=== PATIENT | female | born 1950 | race Caucasian/White ===

== ENCOUNTER 2018-08-28 23:05 | Emergency (ER) | payer MEDICARE ==
[2018-08-28] MEDS ORDERED: METOCLOPRAMIDE 10 MG/2 ML VIAL IVP STA (23:11)
[2018-08-28] MEDS ORDERED: fentaNYL 100 MCG/2 ML VIAL IVP STA (23:17)
[2018-08-28] MEDS ORDERED: FAMOTIDINE 20 MG in SODIUM CHLORIDE 0.9% 50 ML IV ONE (23:17)
--- NOTE | 2018-08-28 23:31 | ED Physician Documentation ---
PD HPI ABD PAIN - Stated complaint Stated Complaint: ABD CRAMPS - Chief complaint Chief Complaint: Abd Pain - Additional information Additional information: 67-year-old female presents the emergency department for evaluation of epigastric pain which started around 7 PM. The pain was not triggered by food. The pain is been continuous and is described as a moderate sharp pain. The pain is associated with nausea. No reports of vomiting or diarrhea or lower abdominal pain. No history of similar pain. The patient does use alcohol occasionally and uses NSAIDs frequently. No other associated symptoms. No relieving factors. Review of Systems Constitutional: denies: Fever Eyes: denies: Loss of vision Ears: denies: Ear pain Nose: denies: Congestion Throat: denies: Sore throat Cardiac: denies: Chest pain / pressure Respiratory: denies: Dyspnea GI: reports: Abdominal Pain, Nausea : denies: Dysuria Skin: denies: Rash Musculoskeletal: denies: Neck pain Neurologic: denies: Generalized weakness Immunocompromised: denies: Chemotherapy PD PAST MEDICAL HISTORY - Present Medications Home Medications: Ambulatory Orders Medication Instructions Recorded Confirmed Famotidine [Pepcid] 20 mg PO BID #60 tablet 08/29/18 HYDROcod/ACETAM 5/325 [[place] 5/325] 1 each PO Q6H PRN #15 tablet 08/29/18 Metoclopramide [Reglan] 10 mg PO Q6H PRN #30 tablet 08/29/18 - Allergies Allergies/Adverse Reactions: Allergies Allergy/AdvReac Type Severity Reaction Status Date / Time No Known Drug Allergies Allergy Verified 08/28/18 23:14 PD ED PE NORMAL - General General: Alert and oriented X 3, No acute distress - HEENT HEENT: Atraumatic, PERRL, EOMI, Ears normal - Neck Neck: Supple, no meningeal sign - Cardiac Cardiac: RRR, Strong equal pulses - Respiratory Respiratory: No respiratory distress, Clear bilaterally - Abdomen Abdomen: Soft, Non distended. No: Non tender (The patient has tenderness to palpation of the epigastrium, no rebound or peritoneal signs, no West sign) - Back Back: No CVA TTP - Derm Derm: Normal color - Extremities Extremities: No deformity, No edema - Neuro Neuro: Alert and oriented X 3, Normal speech - Psych Psych: Normal mood Results - Vitals Vitals: Vital Signs - 24 hr 08/28/18 08/29/18 08/29/18 23:11 00:10 00:49 Temperature 36.1 C L Heart Rate 75 77 72 Respiratory 18 13 14 Rate Blood Pressure 138/108 H 134/79 H 148/90 H O2 Saturation 100 95 96 Oxygen O2 Source Room air - EKG (time done) No standard instances Rhythm: NSR [place]: Normal Intervals: Normal [place] QRS: Normal Ischemia: Normal ST segments - Labs Labs: Laboratory Tests 08/28/18 08/28/18 08/28/18 23:40 23:40 23:40 WBC 5.2 RBC 4.03 L Hgb 13.5 Hct 39.4 MCV 97.8 MCH 33.6 H MCHC 34.4 RDW 13.6 Plt Count 176 MPV 8.0 Neut # (Auto) 3.0 Lymph # (Auto) 1.5 Lamb # (Auto) 0.5 Eos # (Auto) 0.1 Baso # (Auto) 0.1 Absolute Nucleated RBC 0.00 Nucleated RBC % 0.1 Sodium 138 Potassium 3.7 Chloride 102 Carbon Dioxide 27 Anion Gap 9.0 BUN 18 Creatinine 1.1 H Estimated GFR (MDRD) 49 L Glucose 126 H Calcium 9.5 Total Bilirubin 0.8 AST 32 ALT 34 Alkaline Phosphatase 56 Troponin I < 0.04 Total Protein 7.9 Albumin 4.1 Globulin 3.8 Albumin/Globulin Ratio 1.1 Lipase 44 Urine Color Urine Clarity Urine pH Ur Specific [place] Urine Protein Urine Glucose (UA) Urine Ketones Urine Occult Blood Urine Nitrite Urine Bilirubin Urine Urobilinogen Ur Leukocyte Esterase Ur Microscopic Review Urine Culture Comments 08/29/18 01:50 WBC RBC Hgb Hct MCV MCH MCHC RDW Plt Count MPV Neut # (Auto) Lymph # (Auto) Lamb # (Auto) Eos # (Auto) Baso # (Auto) Absolute Nucleated RBC Nucleated RBC % Sodium Potassium Chloride Carbon Dioxide Anion Gap BUN Creatinine Estimated GFR (MDRD) Glucose Calcium Total Bilirubin AST ALT Alkaline Phosphatase Troponin I Total Protein Albumin Globulin Albumin/Globulin Ratio Lipase Urine Color YELLOW Urine Clarity CLEAR Urine pH 6.5 Ur Specific [place] 1.020 Urine Protein NEGATIVE Urine Glucose (UA) NEGATIVE Urine Ketones NEGATIVE Urine Occult Blood NEGATIVE Urine Nitrite NEGATIVE Urine Bilirubin NEGATIVE Urine Urobilinogen 0.2 (NORMAL) Ur Leukocyte Esterase NEGATIVE Ur Microscopic Review NOT INDICATED Urine Culture Comments NOT INDICATED - Rads (name of study) CT abd/pelvis Radiology: Final report received (IMPRESSION: 1. Septated left adnexal cyst or cystic neoplasm measuring 6.5 x 5.9 cm. Comparison with any prior imaging of the area would be helpful. Ultrasound could also be considered. 2. Mildly distended gallbladder with cholelithiasis. Minimal if any inflammatory change. Correlate for any gallbladder symptoms. 3. Fatty liver with right lobe cyst measuring 4.3 cm. 4. Colonic diverticula without evidence of diverticulitis. Appendix ) PD MEDICAL DECISION MAKING - ED course ED course: The patient's workup shows evidence of biliary disease, currently there is no evidence of acute cholecystitis either on the lab work or clinical examination. The patient's pain more likely is related to a gastritis. On reevaluation the patient is resting comfortably and her symptoms are currently under control. The patient's workup does not reveal any abnormality that would necessitate admission to the hospital or emergent consultation with surgery. The patient appears appropriate for discharge and further workup as an outpatient with general surgery. The patient also has an incidental finding seen on CT scan, presently there is no in-house ultrasound for a nonemergent study, the patient appears appropriate for discharge at this time. I recommended that the patient have an outpatient ultrasound to further evaluate the lesion seen on CT scan. The patient understands and agrees. I discussed warning signs and recommended that the patient should return back to the emergency department immediately for any worsening or any concerns. Departure - Departure Disposition: 01 Home, Self Care Clinical Impression: Epigastric abdominal pain, Adnexal cyst Gallstone Qualifiers: Cholecystitis presence: without cholecystitis Biliary obstruction: without biliary obstruction Qualified Code(s): K80.20 - Calculus of gallbladder without cholecystitis without obstruction Gastritis Qualifiers: Gastritis type: other gastritis Chronicity: acute Gastritis bleeding: without bleeding Qualified Code(s): K29.00 - Acute gastritis without bleeding Condition: Good Follow-Up: AUGUSTO NARVAEZ MD [Primary Care Provider] - Within 3 Days (These ask your primary care physician to arrange for an outpatient ultrasound of your pelvis to further evaluate the adnexal lesion seen on CT scan. This would be to rule out a cancerous lesion) Woody Ayers MD [Provider Admit Priv/Credential] - (Please call Friday morning to schedule appointment with general surgery for further evaluation of the abnormality seen regarding your gallbladder) Prescriptions: Famotidine [Pepcid] 20 mg PO BID #60 tablet HYDROcod/ACETAM 5/325 [[place] 5/325] 1 each PO Q6H PRN #15 tablet PRN Reason: Pain Metoclopramide [Reglan] 10 mg PO Q6H PRN #30 tablet PRN Reason: Nausea / Vomiting Comments: Please return to the emergency department immediately for any worsening or any concerns.
[2018-08-28 23:45] LABS: BASOPHILS # (AUTO) 0.1 10^3/uL (0.0-0.1); BASOPHILS % (AUTO) 1.1 %; EOSINOPHILS # (AUTO) 0.1 10^3/uL (0.0-0.7); EOSINOPHILS % (AUTO) 2.9 %; HGB - HEMOGLOBIN 13.5 g/dL (12.0-16.0); LYMPHOCYTES # (AUTO) 1.5 10^3/uL (1.5-3.5); MEAN CORPUSCULAR HEMOGLOBIN 33.6 pg (27.0-31.0); MEAN CORPUSCULAR HGB CONC 34.4 g/dL (32.0-36.0); MEAN CORPUSCULAR VOLUME 97.8 fL (81.0-99.0); MONOCYTES # (AUTO) 0.5 10^3/uL (0.0-1.0); MONOCYTES % (AUTO) 9.5 %; NEUTROPHILS % (AUTO) 57.5 %; PLT - PLATELET COUNT 176 10^3/uL (130-450); RED BLOOD COUNT 4.03 10^6/uL (4.20-5.40); RED CELL DISTRIBUTION WIDTH 13.6 % (12.0-15.0); WHITE BLOOD COUNT 5.2 x10^3/uL (4.8-10.8)
[2018-08-29] MEDS ORDERED: IOPAMIDOL-300 100 ML VIAL ONE (00:01)
[2018-08-29] MEDS ORDERED: IOPAMIDOL-300 50 ML VIAL ONE (00:01)
[2018-08-29 00:15] LABS: ALBUMIN 4.1 g/dL (3.2-5.5); ALBUMIN/GLOBULIN RATIO 1.1 (1.0-2.2); BILIRUBIN,TOTAL 0.8 mg/dL (0.2-1.0); CALCIUM 9.5 mg/dL (8.5-10.3); CREATININE 1.1 mg/dL (0.4-1.0); TOTAL PROTEIN 7.9 g/dL (6.7-8.2)
[2018-08-29] MEDS ORDERED: PROMETHAZINE INJ 25 MG in SODIUM CHLORIDE 0.9% 50 ML IV STA (00:38)
[2018-08-29] MEDS ORDERED: fentaNYL 100 MCG/2 ML VIAL IVP STA (00:38)
[2018-08-29] MEDS ORDERED: IOPAMIDOL-300 50 ML VIAL PO ONE (01:22)
[2018-08-29] MEDS ORDERED: IOPAMIDOL-300 100 ML VIAL IVP ONE (01:35)
--- NOTE | 2018-08-29 01:59 | CT Report ---
Reason: abdominal pain Procedure Date: 08/29/2018 Accession Number: [id number] / [id number] Procedure: CT - Abdomen/Pelvis W/ CPT Code: FULL RESULT: EXAM: CT ABDOMEN AND PELVIS EXAM DATE: 08/29/2018 01:45 AM. CLINICAL HISTORY: Abdominal pain. COMPARISONS: None. TECHNIQUE: Routine helical CT imaging was performed through the abdomen and pelvis. IV contrast: ISOVUE 300 100mL. Enteric contrast: Yes. Reconstructions: Coronal and sagittal. In accordance with CT protocol optimization, one or more of the following dose reduction techniques were utilized for this exam: automated exposure control, adjustment of mA and/or KV based on patient size, or use of iterative reconstructive technique. FINDINGS: Lung Bases: Mild bibasilar atelectasis or infiltrate. Liver: Fatty infiltration. Right lobe cyst measuring 4.3 cm. Gallbladder/Bile Ducts: Mildly distended gallbladder. Gallstones measuring up to 1 cm. Minimal if any inflammatory change. Spleen: Normal. Pancreas: Normal. Adrenal Glands: Normal. Kidneys: Normal. No masses or hydronephrosis. Peritoneal Cavity/Bowel: Colonic diverticula without evidence of diverticulitis. No bowel obstruction seen. No free air or free fluid. No lymphadenopathy. Appendix appears normal. Pelvic Organs: Left adnexal cyst, presumably arising from the ovary, measuring 6.5 x 5.9 cm. This appears to be septated. Visualized pelvic organs are otherwise unremarkable. Vasculature: Moderate atherosclerosis. No aortic aneurysm. Bones: Osteopenia. Other: None. IMPRESSION: 1. Septated left adnexal cyst or cystic neoplasm measuring 6.5 x 5.9 cm. Comparison with any prior imaging of the area would be helpful. Ultrasound could also be considered. 2. Mildly distended gallbladder with cholelithiasis. Minimal if any inflammatory change. Correlate for any gallbladder symptoms. 3. Fatty liver with right lobe cyst measuring 4.3 cm. 4. Colonic diverticula without evidence of diverticulitis. Appendix appears normal. 5. Mild bibasilar atelectasis or infiltrate. RADIA
[2018-08-29 02:00] LABS: BILIRUBIN,URINE NEGATIVE (NEGATIVE); CLARITY,URINE CLEAR (CLEAR); GLUCOSE, URINE (UA) NEGATIVE (NEGATIVE); KETONES,URINE (UA) NEGATIVE (NEGATIVE); LEUKOCYTE ESTERASE, URINE NEGATIVE (NEGATIVE); NITRITE,URINE NEGATIVE (NEGATIVE); OCCULT BLOOD,URINE NEGATIVE (NEGATIVE); PH,URINE 6.5 PH (5.0-7.5); PROTEIN,URINE NEGATIVE (NEGATIVE); UROBILINOGEN,URINE 0.2 (NORMAL) E.U./dL (NORMAL)
[2018-08-29 02:23] VITALS: BP 135/60
== END 2018-08-29 02:31 | disposition home or self-care (01) ==
LOC: ED 23:05
DX: N83.292 Other ovarian cyst, left side (principal); K80.20 Calculus of gallbladder without cholecystitis without obstruction; K29.00 Acute gastritis without bleeding
CPT/HCPCS: 36415; 74177; 80053; 81003; 83690; 84484; 85025; 93005; 96365; 96367; 96375; 96376; 99284; J2765; J7040; Q9967; 81001; 87086

== ENCOUNTER 2024-09-22 15:35 | Inpatient (IN) ==
[2024-09-22] MEDS ORDERED: iohexoL-300 100 ML VIAL ONE (15:44)
--- NOTE | 2024-09-22 15:44 | ED Physician Documentation ---
PD HPI FOCAL NEURO Stated complaint Stated Complaint: CODE STROKE Chief complaint Chief Complaint: Neuro History obtained from History obtained from: Patient and EMS Additional information Additional information: 73-year-old woman with history of hypercholesterolemia, no heart problems and no history of stroke or TIA. At 2 PM today she developed word finding difficulties that resolved over the next 20 to 30 minutes. She is back to normal now save a mild headache. She was sent from the walk-in clinic where blood pressure was approximately 220/120. Prehospital glucose was unremarkable. Meds/Allgy Home Medications Ambulatory Orders Medication Instructions Recorded Confirmed famotidine 20 mg tablet 20 mg PO BID #60 tabs 08/29/18 hydrocodone 5 mg-acetaminophen 325 1 ea PO Q6H PRN Pain #15 tabs 08/29/18 mg tablet metoclopramide HCl 10 mg tablet 10 mg PO Q6H PRN Nausea / Vomiting 08/29/18 #30 tabs atorvastatin 20 mg tablet (Lipitor) 20 mg PO QDAY 09/22/24 09/22/24 levothyroxine 88 mcg capsule 88 mcg PO QDAY 09/22/24 09/22/24 losartan 25 mg tablet 25 mg PO QDAY 09/22/24 09/22/24 Allergies Allergies Allergy/AdvReac Type Severity Reaction Status Date / Time No Known Drug Allergies Allergy Verified 08/28/18 23:14 [facility] Medical History Medical History (Updated 09/22/24 @ 18:31 by Eliezer Rios MD) Cataract Social History Social History Smoking Status: Never smoker Relationship: Do you feel safe in your home environment?: Yes Suffered physical, verbal, emotional, or financial abuse?: No History of Abuse: No ETOH Use: Frequency: Weekly POLST Patient has POLST: No Exam Constitutional normal general appearance and no apparent distress Cardiovascular normal heart rate noted and regular rhythm noted Neurology GCS 15 NIHSS zero Results Vitals Vitals: Vital Signs - 24 hr 09/22/24 15:42 09/22/24 15:48 09/22/24 16:16 Temperature 37.1 C 37.1 C Temperature Source Oral Oral Pulse Rate 81 79 82 Respiratory Rate 16 16 Blood Pressure 200/102 H 200/102 H 180/89 H O2 Saturation 99 99 99 O2 Source Room air Room air Room air Pain Intensity 0 0 0 09/22/24 16:46 09/22/24 18:00 09/22/24 18:21 Temperature 37.1 C Temperature Source Oral Pulse Rate 91 H 75 83 Respiratory Rate 14 16 Blood Pressure 183/96 H 164/112 H 177/94 H O2 Saturation 97 99 96 O2 Source Room air Room air Pain Intensity 0 0 0 09/22/24 18:30 09/22/24 19:00 09/22/24 19:30 Temperature 37.1 C 36.4 C L Temperature Source Oral Temporal Artery Scan Pulse Rate 77 80 77 Respiratory Rate 16 17 18 Blood Pressure 184/43 H 198/101 H 181/105 H O2 Saturation 98 98 95 O2 Source Room air Room air Room air Pain Intensity 0 0 0 09/22/24 19:56 Temperature Temperature Source Pulse Rate 78 Respiratory Rate Blood Pressure 176/101 H O2 Saturation 95 O2 Source Room air Pain Intensity 0 Oxygen O2 Source Room air EKG (time done) 1557: EKG releavant findings:: EKG personally interpreted by author of this note. Relevant findings are: Twelve-lead EKG demonstrates normal sinus rhythm with short OR interval. No ST or T wave changes. No long QTc. Labs Labs: Laboratory Tests 09/22/24 15:39 WBC 6.0 RBC 3.83 L Hgb 12.6 Hct 38.8 MCV 101.3 H MCH 32.9 H MCHC 32.5 RDW 12.6 Plt Count 189 MPV 9.2 Neut # (Auto) 4.5 Lymph # (Auto) 1.0 L [place] # (Auto) 0.4 Eos # (Auto) 0.1 Baso # (Auto) 0.0 Absolute Nucleated RBC 0.00 Nucleated RBC % 0.0 PT 11.7 INR 1.1 Sodium 139 Potassium 3.9 Chloride 104 Carbon Dioxide 27 Anion Gap 8.0 BUN 13 Creatinine 0.8 Estimated GFR (MDRD) 70 L Glucose 139 H Calcium 10.4 H Total Bilirubin 1.0 AST 22 ALT 23 Alkaline Phosphatase 54 Total Protein 8.8 Albumin 4.7 Globulin 4.1 Albumin/Globulin Ratio 1.1 Lipase 32 Rads (name of study) CT of the head without contrast: Relevant Findings:: Final report received (Moderate atrophy and chronic small vessel ischemic change. No intracranial hemorrhage or obvious stroke.) and EMP independent interpretation of test (No ICH) CTA Head/neck: Relevant Findings:: Final report received (Diminutive left WORM GROWER with multifocal stenosis and severe stenosis left A1 MARIAN) and EMP independent inter pretation of test (Diminutive left WORM GROWER with multifocal stenosis and severe stenosis left A1 MARIAN) PD Medical Decision Making ED course Complexity details: reviewed results (CBC, CMP were generally unremarkable save for mild hypercalcemia.) ED course: She presents with resolved symptoms consistent with TIA. Her NIH stroke scale on arrival was 0. She had no ectopy on the monitor. That said she had pretty significant hypertension which I eventually ended up treating as it went up to a bout 230/130 and she received a dose of labetalol. Obviously otherwise we are trying to do somewhat permissive hypertension. She was administered aspirin. CT did not show acute disease but her CT angiography did not demonstrate diminutive left WORM GROWER with multifocal tandem stenosis with MRI advised and severe stenosis at the left A1 MARIAN without occlusion. Decision to admit was made at about 6:20 PM pending hospitalist change of shift at 7 PM. The effect of labetalol that was very short acting and blood pressure went up to about 230/130 so a Cardene drip was started now with plan to admit to ICU. Spoke with the telehealth hospitalist for admission at 8:02 PM. The patient and family are counseled as to the diagnosis and need for admission. This document was made in part using voice recognition software, while efforts are made to proofread this document, sound alike an grammatical errors may occur. Critical Care Time(min): 35 Time Includes: Direct patient care, Review records, Reassess patient, Document care, Coordinate care and Medical consult Data interpretation: Labs and Pulse ox Procedures included in critical care time: Peripheral IV Procedures excluded from critical care time: EKG Discharge Plan Discharge Patient Disposition: 66 [facility] DC/Xfer Condition: Stable Clinical Impression: Brain TIA, Hypertension, Intracranial vascular disease Prescriptions: No Action hydrocodone-acetaminophen 1 TAB tablet 1 ea PO Q6H PRN (Reason: Pain) Qty: 15 0RF famotidine 20 MG tablet 20 mg PO BID Qty: 60 0RF metoclopramide HCl 10 MG tablet 10 mg PO Q6H PRN (Reason: Nausea / Vomiting) Qty: 30 0RF losartan 25 mg tablet 25 mg PO QDAY atorvastatin [Lipitor] 20 mg tablet 20 mg PO QDAY levothyroxine 88 mcg capsule 88 mcg PO QDAY Print Language: Cook Islander
[2024-09-22 15:48] LABS: BASOPHILS % (AUTO) 0.5 %; EOSINOPHILS # (AUTO) 0.1 10^3/uL (0.0-0.7); HCT - HEMATOCRIT 38.8 % (37.0-47.0); HGB - HEMOGLOBIN 12.6 g/dL (12.0-16.0); LYMPHOCYTES % (AUTO) 16.8 %; MEAN CORPUSCULAR HEMOGLOBIN 32.9 pg (27.0-31.0); MEAN CORPUSCULAR HGB CONC 32.5 g/dL (32.0-36.0); MEAN CORPUSCULAR VOLUME 101.3 fL (81.0-99.0); MEAN PLATELET VOLUME 9.2 fL (7.9-10.8); MONOCYTES # (AUTO) 0.4 10^3/uL (0.0-1.0); MONOCYTES % (AUTO) 6.4 %; NEUTROPHILS # (AUTO) 4.5 10^3/uL (1.5-6.6); NEUTROPHILS % (AUTO) 75.1 %; PLT - PLATELET COUNT 189 10^3/uL (130-450); RED BLOOD COUNT 3.83 10^6/uL (4.20-5.40); RED CELL DISTRIBUTION WIDTH 12.6 % (12.0-15.0)
[2024-09-22 16:02] LABS: ALBUMIN 4.7 g/dL (3.2-5.5); ALBUMIN/GLOBULIN RATIO 1.1 (1.0-2.2); CALCIUM 10.4 mg/dL (8.5-10.3); CREATININE 0.8 mg/dL (0.6-1.3); POTASSIUM 3.9 mmol/L (3.5-4.5); TOTAL PROTEIN 8.8 g/dL (6.4-8.9)
[2024-09-22 16:05] LABS: INR 1.1 (0.8-1.2); PT - PROTHROMBIN TIME 11.7 secs (9.9-12.6)
[2024-09-22] MEDS: iohexoL-300 100 ML VIAL IVP ONE (16:27)
--- NOTE | 2024-09-22 16:42 | CT Report ---
PROCEDURE: CT Head WO INDICATIONS: Neuro deficit, acute, stroke suspected TECHNIQUE: Noncontrast 4.5 mm thick angled axial sections acquired from the foramen magnum to the vertex. For r adiation dose reduction, the following was used: automated exposure control, adjustment of mA and/or kV according to patient size. COMPARISON: None. FINDINGS: Image quality: Excellent. Ventricles and cortical sulci are moderately dilated commonly represents a pattern of atrophy. Moderate areas of low-attenuation in the periventricular and deep white matter, basal ganglia, bilate ral anterior limbs of internal capsules commonly related to chronic small vessel ischemic changes and /or chronic lacunar infarcts. No CT evidence of intracranial hemorrhage, mass lesion, mass effect. The orbits scalp, calvarium, paranasal sinuses, mastoid air cells, middle ear cavities within normal limits. Moderate vascular calcifications bilateral cavernous, supraclinoid carotids. IMPRESSION: Moderate atrophy and chronic small vessel schema changes as discussed above. No CT evidence of intracranial hemorrhage. If symptoms persist or worsen, or there is high clinical suspicion of intracranial abnormality, MRI b rain could be performed. Reviewed by: Oni Weiss MD on 09/22/2024 4:40 PM PST Approved by: Oni Weiss MD on 09/22/2024 4:40 PM PST Station ID: [id number]
[2024-09-22] MEDS: LABETALOL 20 MG/4 ML SYRINGE IVP STA (18:11)
--- NOTE | 2024-09-22 18:12 | CT Report ---
PROCEDURE: CT Angio Head/Neck INDICATIONS: cva sx TECHNIQUE: Helical axial CT of the head and neck was obtained during the arterial phase of a intrave nous contrast injection utilizing an angiographic protocol. Multiplanar traditional and MIP reformat s were also obtained. Dose reduction techniques included either automated exposure control or adjustm ent of exposure parameters. COMPARISON: None. FINDINGS: Cerebral CT Angiogram: Internal carotid arteries: No acute findings. Intracranial ICA are patent with no significant steno sis. No occlusion. No aneurysm. Anterior cerebral arteries: Severe stenosis at the origin of the left A1 MARIAN without occlusion. No an eurysm. Middle cerebral arteries: Unremarkable. No significant stenosis. No occlusion. No aneurysm. 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 The P2 segment is supplied by a patent posterior communicating artery. On the left, the proximal [employer]ER is diminutive and shows sev eral tandem focal stenosis. Distal RA[employer] LETTERER is diminutive but patent. Basilar artery:Basilar artery is quite diminutive distal to the takeoff of the superior cerebellar ar teries. No occlusion. No aneurysm. Vertebral arteries: Unremarkable as visualized. Dural venous sinuses: Unremarkable given phase of enhancement. Other: Arterial phase appearance of the brain parenchyma is unremarkable. Neck CT Angiogram: Internal carotid arteries: Unremarkable. No significant stenosis. No dissection or occlusion. Common carotid arteries: Unremarkable. No significant stenosis. No dissection or occlusion. External carotid arteries: Unremarkable. No occlusion. Vertebral arteries: Unremarkable. No significant stenosis. No dissection or occlusion. Aortic Arch and Mediastinum: Partially visualized aortic arch unremarkable without evidence of aneury sm. Origins of the great vessels unremarkable. Other: Arterial phase soft tissues of the neck are unremarkable. IMPRESSION: Diminutive left RAILROAD CAR LETTERER with multifocal tandem stenosis. Advise follow-up MRI brain. Severe stenosis at the origin the left A1 MARIAN without occlusion. Atherosclerotic vascular calcification in both proximal ICA without stenosis utilizing NASCET criteri a. Reviewed by: Asaf Rios MD on 09/22/2024 5:10 PM [place] Approved by: Asaf Rios MD on 09/22/2024 5:10 PM [place] Station ID: [id number]
[2024-09-22] MEDS: ASPIRIN CHEW 81 MG TABLET PO STA (18:27)
[2024-09-22] MEDS ORDERED: NICARDIPINE HCL 25 MG/10 ML VIAL IV ONE (19:47)
[2024-09-22] MEDS: NICARDIPINE HCL 25 MG in SODIUM CHLORIDE 0.9% 240 ML IV STA (19:50)
[2024-09-22] MEDS ORDERED: BENZONATATE 100 MG CAPSULE PO PRN (20:17)
[2024-09-22] MEDS ORDERED: ALBUTEROL 1 PUFF INH PRN (20:17)
[2024-09-22] MEDS ORDERED: ACETAMINOPHEN 325 MG TABLET PO PRN (20:17)
[2024-09-22] MEDS ORDERED: MELATONIN 3 MG TABLET PO PRN (20:17)
[2024-09-22] MEDS ORDERED: METOCLOPRAMIDE 10 MG TABLET PO PRN (20:17)
--- NOTE | 2024-09-22 20:25 | HISTORY & PHYSICAL EXAMINATION ---
Chief Complaint Chief Complaint Chief Complaint: difficulty word finding, elevated bp History of Present Illness History of Present Illness HPI Comment/Other: 73-year-old woman with history of hypercholesterolemia, no heart problems and no history of stroke or TIA. At 2 PM today she developed word finding difficulties that resolved over the next 20 to 30 minutes. She is back to normal now save a mild headache. She was sent from the walk-in clinic where blood pressure was approximately 220/120. Prehospital glucose was unremarkable. Review of Systems Status of ROS: 10 or more systems reviewed and unremarkable except as noted in history and below [facility] Medical History Medical History (Updated 09/22/24 @ 18:31 by Eliezer Rios MD) Cataract Social History Social History Smoking Status: Never smoker Relationship: Do you feel safe in your home environment?: Yes Suffered physical, verbal, emotional, or financial abuse?: No History of Abuse: No ETOH Use: Frequency: Weekly POLST Patient has POLST: No Meds/Allgy Home Medications Ambulatory Orders Medication Instructions Recorded Confirmed famotidine 20 mg tablet 20 mg PO BID #60 tabs 08/29/18 hydrocodone 5 mg-acetaminophen 325 1 ea PO Q6H PRN Pain #15 tabs 08/29/18 mg tablet metoclopramide HCl 10 mg tablet 10 mg PO Q6H PRN Nausea / Vomiting 08/29/18 #30 tabs atorvastatin 20 mg tablet (Lipitor) 20 mg PO QDAY 09/22/24 09/22/24 levothyroxine 88 mcg capsule 88 mcg PO QDAY 09/22/24 09/22/24 losartan 25 mg tablet 25 mg PO QDAY 09/22/24 09/22/24 Allergies Allergies Allergy/AdvReac Type Severity Reaction Status Date / Time No Known Drug Allergies Allergy Verified 08/28/18 23:14 Exam Constitutional normal general appearance and no apparent distress HENMT normocephalic, head/scalp atraumatic and hearing grossly normal bilaterally Eyes EOMs intact bilaterally Neck/C-Spine visual inspection normal Chest inspection of chest normal Respiratory per ed charting Cardiovascular per ed charting Gastrointestinal abdomen normal to inspection Neurology no movement abnormality noted, speech normal and GCS 15 Psychiatry mental status grossly normal, oriented x3, thought process normal, cooperative and affect normal Conclusion/Plan Lab Results 09/22/24 15:39 09/22/24 15:39 Other Other Results/Comments: pt with - - tia symptoms resolved no acute pathology on ct cta head/neck shows stenotic disease mri ordered, along with 2d echo neuro checks - uncontrolled htn with h/o htn contributory to above sbp >200s, on cardene drip at this time - elevated glucose exacerbated in setting of above no reported h/o t2dm check a1c f/u labs, neuro status, vitals further orders per clinical course
[2024-09-22 20:56] LABS: CHOL/HDL RATIO 2.6 (<4.4); CHOLESTEROL 182 mg/dL; HDL CHOLESTEROL 70 mg/dL; LDL CHOLESTEROL,CALCULATED 89 mg/dL; LDL/HDL RATIO 1.3 (<4.4); TRIGLYCERIDES 113 mg/dL; VLDL CHOLESTEROL 23 mg/dL
[2024-09-22 21:00] LABS: THYROID STIMULATING HORMONE 4.19 uIU/mL (0.34-5.60)
[2024-09-22 21:18] LABS: ESTIMATED AVERAGE GLUCOSE 111 mg/dL (70-100); HEMOGLOBIN A1c% 5.5 % (4.27-6.07)
[2024-09-22] MEDS: FAMOTIDINE 20 MG TABLET PO SCH (22:12)
[2024-09-23 04:35] LABS: BASOPHILS % (AUTO) 0.8 %; EOSINOPHILS # (AUTO) 0.1 10^3/uL (0.0-0.7); EOSINOPHILS % (AUTO) 1.5 %; HCT - HEMATOCRIT 35.9 % (37.0-47.0); HGB - HEMOGLOBIN 11.6 g/dL (12.0-16.0); LYMPHOCYTES # (AUTO) 1.4 10^3/uL (1.5-3.5); LYMPHOCYTES % (AUTO) 25.8 %; MEAN CORPUSCULAR HEMOGLOBIN 32.7 pg (27.0-31.0); MEAN CORPUSCULAR HGB CONC 32.3 g/dL (32.0-36.0); MEAN CORPUSCULAR VOLUME 101.1 fL (81.0-99.0); MEAN PLATELET VOLUME 9.4 fL (7.9-10.8); MONOCYTES # (AUTO) 0.5 10^3/uL (0.0-1.0); MONOCYTES % (AUTO) 9.6 %; NEUTROPHILS # (AUTO) 3.3 10^3/uL (1.5-6.6); NEUTROPHILS % (AUTO) 62.1 %; PLT - PLATELET COUNT 185 10^3/uL (130-450); RED BLOOD COUNT 3.55 10^6/uL (4.20-5.40); RED CELL DISTRIBUTION WIDTH 12.7 % (12.0-15.0); WHITE BLOOD COUNT 5.2 x10^3/uL (4.8-10.8)
[2024-09-23 04:53] LABS: ALBUMIN 4.4 g/dL (3.2-5.5); ALBUMIN/GLOBULIN RATIO 1.6 (1.0-2.2); CALCIUM 9.7 mg/dL (8.5-10.3); CREATININE 0.8 mg/dL (0.6-1.3); MAGNESIUM 1.6 mg/dL (1.7-2.3); POTASSIUM 3.4 mmol/L (3.5-4.5); TOTAL PROTEIN 7.2 g/dL (6.4-8.9)
[2024-09-23] MEDS: LEVOTHYROXINE 88 MCG TABLET PO SCH (06:44)
[2024-09-23] MEDS: LOSARTAN 50 MG TABLET PO SCH (08:42)
[2024-09-23] MEDS: ATORVASTATIN 10 MG TABLET PO SCH (08:43)
[2024-09-23] MEDS: ENOXAPARIN 40 MG/0.4 ML SYRINGE SUBQ SCH (08:44)
[2024-09-23] MEDS ORDERED: ALBUTEROL NEB 2.5 MG/3 ML INH PRN (08:55)
[2024-09-23] MEDS: LORazepam 2 MG/ML VIAL IVP STA (09:54)
--- NOTE | 2024-09-23 10:36 | PHARMACY PROGRESS NOTE ---
Best Possible Medication History Admit Date and Time: 09/22/24937544 Home Medications Medication Instructions Recorded Confirmed Type atorvastatin 40 mg tablet 40 mg PO ONCE 09/23/24 09/23/24 History cholecalciferol (vitamin D3) 25 1,000 unit PO DAILY 09/23/24 09/23/24 History mcg (1,000 unit) capsule levothyroxine 50 mcg tablet 50 mcg PO ONCE 09/23/24 09/23/24 History losartan 50 mg tablet 50 mg PO ONCE 09/23/24 09/23/24 History omeprazole 20 mg capsule,delayed 20 mg PO DAILY 09/23/24 09/23/24 History release Processed by: Pharmacy (Medication reconciliation completed by pharmacy picking techJane) Medications reviewed in ED?: No Medication History completed: Yes Patient Interview: Completed Secondary Source(s): Insurance records [facility] Statement: As the person ultimately responsible for medication therapy, providers are able to order a medication from an existing home medication list in [facility] via the "Reconcile Routine" prior to Confirmation of that medication by application support intern. Such practice is discouraged except when the physician, in their clinical judgment, deems that a medical need exists for a medication without regard to previous use.
[2024-09-23] MEDS: LOSARTAN 50 MG TABLET PO ONE (11:34)
[2024-09-23] MEDS: MAGNESIUM OXIDE 400 MG TABLET PO ONE (11:35)
[2024-09-23] MEDS: ASPIRIN EC 81 MG TABLET PO SCH (11:35)
[2024-09-23] MEDS: ATORVASTATIN 10 MG TABLET PO ONE (11:35)
[2024-09-23] MEDS: CHOLECALCIFEROL 25 MCG TABLET PO SCH (11:35)
[2024-09-23] MEDS: POTASSIUM CHLORIDE 10 MEQ CAPSULE PO ONE (11:36)
[2024-09-23] MEDS: POTASSIUM CHLORIDE 20 MEQ/15 ML UDC PO ONE (12:39)
--- NOTE | 2024-09-23 14:24 | MRI Report ---
PROCEDURE: MRI Brain WO INDICATIONS: cva TECHNIQUE: Noncontrast axial T1 spin echo, axial T2 fast spin echo, sagittal and axial FLAIR, coronal T2 fast sp in echo, axial gradient echo, axial diffusion and ADC through the brain. COMPARISON: Correlation is made with CT examinations, 09/22/2024. FINDINGS: Image quality: Excellent. CSF Spaces: Basal cisterns are patent. No extra-axial fluid collections. Ventricles are normal in size and shape. Brain: There is a 9 mm focus of abnormal diffusion weighted signal seen within the right peritrigona l region, as on series 6 image 41. There is associated dark signal seen on the ADC map. Developing T2 -weighted signal is seen at this site. No intracranial masses or hemorrhage. Schafer/white matter interface is normal. Brainstem appears norm al. No chronic ischemic insults. Normal intravascular flow voids are present. Skull and face: Calvarium has normal marrow signal. Orbits appear normal. A left lens replacement is incidentally noted. Sinuses: Sinuses and mastoids are clear. IMPRESSION: Small focus of subacute infarction seen within the right peritrigonal region. Reviewed by: Siva Jaramillo MD on 09/23/2024 1:23 PM [place] Approved by: Siva Jaramillo MD on 09/23/2024 1:23 PM [facility] Station ID: [id number]
--- NOTE | 2024-09-23 15:19 | Discharge Summary ---
"Discharge Summary Admit Date: 09/22/24 Discharge Date: 09/23/24 Discharging Provider: Felipa Childs MD Primary Care Provider: Zoraida Cortes MD ([facility]) Code Status: Attempt Resuscitation DIAGNOSES Discharge Diagnoses with Status of Each Condition: 1. CVA with word finding difficulty 2. Left middle cerebral artery stenosis 3. Uncontrolled hypertension 4. Hyperglycemia 5. Hyperlipidemia HPI History of Present Illness: 73-year-old woman with history of hypercholesterolemia, no heart problems and no history of stroke or TIA. At 2 PM today she developed word finding difficulties that resolved over the next 20 to 30 minutes. She is back to normal now save a mild headache. She was sent from the walk-in clinic where blood pressure was approximately 220/120. Prehospital glucose was unremarkable. CONSULTS | PROCEDURES Procedures: Head CT: Moderate atrophy and chronic small vessel schema changes as discussed above. No CT evidence of intracranial hemorrhage. If symptoms persist or worsen, or there is high clinical suspicion of intracranial abnormality, MRI brain could be performed. Angiography CT head: Diminutive left PROP SAWYER with multifocal tandem stenosis. Advise follow-up MRI brain. Severe stenosis at the origin the left A1 MARIAN without occlusion. Atherosclerotic vascular calcification in both proximal ICA without stenosis utilizing NASCET criteria. MRI Head: Small focus of subacute infarction seen within the right peritrigonal region. Echocardiogram: Underlying sinus rhythm. Left ventricle normal size. Left ventricular systolic function normal with ejection fraction 55 to 60%. Grade 1 diastolic dysfunction. No regional wall motion abnormalities. Right ventricle is normal. Right ventricular systolic function normal. Moderate increase in left atrial volume index at 44 mL/m. Mild aortic valve sclerosis no stenosis. RVSP 25 mmHg. No atrial shunt. Lipomatous hypertrophy of the interatrial septum. HOSPITAL COURSE Hospital Course: The patient was transferred to ICU because her blood pressure was very uncontrolled and needed a nicardipine drip. Within a few hours she no longer needed the drip. Her usual home medications of losartan were resumed. She was also started on aspirin 81 mg a day and atorvastatin. At home she is usually on a lower dose, and she was discharged on 80 mg of atorvastatin for the next 30 days. She is not on aspirin on a usual basis and I started aspirin every day. I did consider dual therapy with ASA and Plavix but since this is her first event, I will discharge on one platelet inhibitor. If she has more symptoms, I would recommend added the plavix. I have explained to her that her Left middle cerebral arterial stenosis or narrowing of artery is a difficult place to access surgically. That the treatment for that should be medical management. Yet the area of her stroke is on the right side not the area of the left MARIAN. All of her symptoms have resolved and have been resolved for several hours.I spent an extensive length of time about medical management and medical risk reduction with this patient. I strongly encouraged her to follow through because if she does go on to have a stroke with her left middle cerebral artery, it would be a very large stroke. This then led to thoughts about advance care planning. She says she is not ready to consider DO NOT RESUSCITATE status. But she is starting to realize that she may have to reconsider it and she and her will have to have a talk about that and it would include their family. She is also starting to have a conversation about what the future would bring with regards to need for caregivers. She and her have quite a bit of work today. She is getting ready to establish herself with a new primary care provider. Has an appointment with Zoraida Costa MD at [facility] in [place]. I have enocouraged her to be seen soon and to aim for a BP of 120/70, an LDL of 70 and a glucose below 100 when fasting. ALLERGIES Allergies Allergy/AdvReac Type Severity Reaction Status Date / Time No Known Drug Allergies Allergy Verified 08/28/18 23:14 MEDICATIONS Ambulatory Orders Medication Instructions Recorded Confirmed aspirin 81 mg tablet,delayed 81 mg PO DAILY #100 tabs 09/23/24 release atorvastatin 40 mg tablet 80 mg (2 x 40 mg) PO DAILY #60 tabs 09/23/24 cholecalciferol (vitamin D3) 25 1,000 unit PO DAILY 09/23/24 09/23/24 mcg (1,000 unit) capsule levothyroxine 50 mcg tablet 50 mcg PO DAILY 09/23/24 09/23/24 losartan 50 mg tablet 50 mg PO DAILY 09/23/24 09/23/24 omeprazole 20 mg capsule,delayed 20 mg PO DAILY 09/23/24 09/23/24 release PHYSICAL EXAM AT DISCHARGE General Appearance: positive No acute distress, Alert and Other (5 foot, 4 in elderly female 65 kg. Alert, pleasant. at bedside for all conversations. ) Eyes Bilateral: positive PERRL, EOMI and No scleral icterus ENT: positive No signs of dehydration Neck: positive Nml inspection, Thyroid nml and No JVD; negative Carotid bruit Respiratory: positive No respiratory distress and Breath sounds nml Cardiovascular: positive Regular rate & rhythm Abdomen: positive Non-tender, No organomegaly and Nml bowel sounds Extremities: positive Non-tender, Full ROM and Nml appearance Neurologic/Psychiatric: positive Oriented x3, CN's nml (2-12) and Motor nml; negative Weakness, Facial droop or Slurred/abnml speech LABS 09/23/24 04:30 09/23/24 04:30 TIME SPENT Time Spent in Discharge (Minutes): 35 Discharge Plan Discharge Patient Disposition: 01 Home, Self Care Condition: Stable Medically Cleared Date:: 09/23/24 Prescriptions: New aspirin 81 mg Tablet,Delayed Release (Dr/Ec) 81 mg PO DAILY Qty: 100 0RF Continued losartan 50 mg tablet 50 mg PO DAILY Patient Comments: TAKE 1 TABLET BY MOUTH ONCE DAILY AM levothyroxine 50 mcg tablet 50 mcg PO DAILY Patient Comments: TAKE 1 TABLET BY MOUTH ONCE DAILY AM cholecalciferol (vitamin D3) 25 mcg (1,000 unit) capsule 1,000 unit PO DAILY omeprazole 20 mg capsule,delayed release(DR/EC) 20 mg PO DAILY Changed atorvastatin 40 mg tablet 80 mg PO DAILY Qty: 60 0RF Patient Comments: TAKE 1 TABLET BY MOUTH ONCE DAILY AM Activity Restrictions: Activity as Tolerated Diet: Cardiac Health Concerns: You are 73 years old and your risk of stroke is high blood pressure, high cholesterol, age. You are a former smoker. You presented as word finding difficulty, dizziness and headache. By the time he got to the emergency room he had gone away so you decided to go to the walk-in clinic instead. At the walk- in clinic visit you back to the emergency room. Your evaluated for stroke including a CAT scan of the head and arteriogram which is a x-ray of the arteries of your neck and brain. You have not had a stroke. But your brain does show changes of aging and in all areas of your brain you have areas of narrowing of the arteries with decreased blood supply to the very small distal arteries. However the blood supply study There is a very narrow artery in the area of anatomy we call the left middle cerebral artery. I am giving you a picture with these discharge instructions to you know where that is. Care Plan Goals: She and her have just began to discuss advance care planning. She does not know if she wants to be a DO NOT RESUSCITATE yet but think she is leaning in that direction. They also are starting to think about what would happen if one of them become severely disabled. Things such as living at home with caregivers, living at nursing homes, or living with children are being discussed. Assessment: Patient is alert and oriented with at the bedside following instructions as well Plan of Treatment: 1. Please see your primary care provider in follow-up. Goal to reduce your risk of going on to have a full stroke is to have your blood pressure carefully control, glucose must be perfect. You cannot smoke. And exercise on a regular basis would be helpful. 2. If you have recurrence of slurred speech, numbness of the face, numbness of the right side of your body, you must come into the hospital immediately in order to get care for impending stroke. If you are outside the window of treatment you may not be able to be candidate for the clot busting drug we gave to stop the stroke from happening. Unfortunately your anatomy of the left middle cerebral artery is not amenable to surgical intervention. 3. I am doubling your atorvastatin. Take the double dose of 80 mg for the next 30 days. I am also starting an aspirin 81 mg a day. Print Language: Chinese Patient Instructions: Stroke Sx, Stroke Ischemic, TIA"
[2024-09-23 15:57] VITALS: O2SAT 94
[2024-09-24] MEDS ORDERED: LEVOTHYROXINE 25 MCG TABLET PO SCH (07:00)
[2024-09-24] MEDS ORDERED: LOSARTAN 50 MG TABLET PO SCH (09:00)
[2024-09-24] MEDS ORDERED: ATORVASTATIN 40 MG TABLET PO SCH (11:00)
== END 2024-09-23 15:44 | disposition home or self-care (01) | DRG 66 ==
LOC: EDBD → ED 15:35 → ICU 20:39
PROVIDERS: ADMIT Student in an Organized Health Care Education/Training Program; ATTEND Student in an Organized Health Care Education/Training Program
DX: I66.22 Occlusion and stenosis of left posterior cerebral artery; E78.00 Pure hypercholesterolemia, unspecified; I66.12 Occlusion and stenosis of left anterior cerebral artery; R47.01 Aphasia; R29.700 NIHSS score 0; I10 Essential (primary) hypertension; Z79.899 Other long term (current) drug therapy; Z79.890 Hormone replacement therapy; R73.9 Hyperglycemia, unspecified; I63.9 Cerebral infarction, unspecified; G45.9 Transient cerebral ischemic attack, unspecified